=== PATIENT | male | born 1980 | race African-American/Black ===

== ENCOUNTER 2017-05-21 09:24 | Emergency (ER) | payer MEDICARE, MEDICAID ==
[~2017-05-21] VITALS: Ht 190.5 cm; Wt 59.0 kg
[2017-05-21 09:52] VITALS: BP 118/78
== END 2017-05-21 15:59 | disposition left against medical advice (07) ==
LOC: ER 09:52
DX: M79.671 Pain in right foot (principal); M79.89 Other specified soft tissue disorders; Z53.21 Procedure and treatment not carried out due to patient leaving prior to being seen by health care provider

== ENCOUNTER 2023-12-23 06:48 | Inpatient (IN) | payer MEDICARE, MEDICAID ==
[~2023-12-23] VITALS: Ht 182.9 cm; Wt 60.9 kg
[2023-12-23] MEDS ORDERED: ACETAMINOPHEN 325MG TABLET PO PRN (09:00)
[2023-12-23] MEDS ORDERED: ONDANSETRON HCL 4MG/2ML INJ IV PRN (11:45)
[2023-12-23] MEDS ORDERED: MORPHINE SULFATE 2 MG/ML INJ (NOT FOR IM USE) IV PRN (11:45)
[2023-12-23] MEDS ORDERED: CLONIDINE 0.1MG TABLET PO PRN (11:45)
[2023-12-23] MEDS ORDERED: LORAZEPAM 2MG/ML INJ IV PRN (11:45)
[2023-12-23] MEDS: HALOPERIDOL LACTATE 5MG/ML VIAL IM ONE (11:47)
[2023-12-23] MEDS: LORAZEPAM 2MG/ML INJ IM ONE (11:47)
[2023-12-23] MEDS ORDERED: NALOXONE HCL 0.4MG/ML VIAL IV PRN (12:30)
[2023-12-23] MEDS ORDERED: CEFTRIAXONE 1GM/50ML 50 ML IV NR (12:30)
[2023-12-23 15:38] LABS: BASOPHILS % 0.2 % (0.0-2.0); EOSINOPHILS % 0.2 % (0.0-5.0); HEMATOCRIT. 34.5 % (42.0-52.0); HEMOGLOBIN. 11.4 g/dL (14.0-18.0); LYMPHOCYTES % 9.1 % (20.0-50.0); MEAN CORPUSCULAR HEMOGLOBIN 29.2 pg (28.0-32.0); MEAN CORPUSCULAR HGB CONC 32.9 g/dL (31.0-37.0); MEAN CORPUSCULAR VOLUME 88.8 fL (80.0-94.0); MEAN PLATELET VOLUME 8.9 fl (7.4-10.4); MONOCYTES % 11.2 % (2.0-8.0); NEUTROPHILS % 79.3 % (40.0-76.0); PLATELET 187 x1000/uL (130-400); RED BLOOD CELL COUNT 3.89 mill/uL (4.7-6.1); RED CELL DISTRIBUTION WIDTH 16.1 % (11.6-14.6); WHITE BLOOD COUNT 8.7 x1000/uL (4.5-11.0)
[2023-12-23 15:45] LABS: CHLORIDE 105 mEq/L (98-107); POTASSIUM 3.7 mEq/L (3.5-5.1); SODIUM 138 mEq/L (136-145)
[2023-12-23 15:46] LABS: CARBON DIOXIDE 27 mEq/L (21-32)
[2023-12-23 15:47] LABS: CALCIUM 9.7 mg/dL (8.7-10.4)
[2023-12-23 15:51] LABS: CREATININE 0.6 mg/dL (0.6-1.3); GLUCOSE 91 mg/dL (70-105); UREA NITROGEN BLOOD 10 mg/dL (9-23)
[2023-12-23 15:59] LABS: TROPONIN I HIGH SENSITIVITY < 4 ng/L (3.0-53)
[2023-12-23] MEDS: DEXT 5%/0.45% NACL 1000ML 1,000 ML IV SCH (20:38)
[2023-12-23 22:45] LABS: TROPONIN I HIGH SENSITIVITY < 4 ng/L (3.0-53)
[2023-12-24 00:41] VITALS: BP 102/68; PULSE 80; RESP 18; TEMP 96.6
[2023-12-24 04:00] VITALS: BP 106/75; PULSE 96; RESP 20; TEMP 97.9
[2023-12-24] MEDS: CEFTRIAXONE 1GM/50ML 50 ML IV NR (06:27)
[2023-12-24 06:55] LABS: CHLORIDE 105 mEq/L (98-107); POTASSIUM 4.1 mEq/L (3.5-5.1); SODIUM 137 mEq/L (136-145)
[2023-12-24 06:56] LABS: CALCIUM 8.6 mg/dL (8.7-10.4); CARBON DIOXIDE 18 mEq/L (21-32)
[2023-12-24 07:01] LABS: CREATININE 0.5 mg/dL (0.6-1.3); GLUCOSE 62 mg/dL (70-105)
[2023-12-24 07:04] LABS: T4 FREE 1.52 ng/dL (0.89-1.76); THYROID STIMULATING HORMONE 1.46 uIU/mL (0.55-4.78)
[2023-12-24 07:14] LABS: UREA NITROGEN BLOOD < 5 mg/dL (9-23)
[2023-12-24 08:00] VITALS: BP 150/93; PULSE 92; RESP 20; TEMP 97.9
[2023-12-24] MEDS ORDERED: PROPOFOL 200MG/20ML VIAL IV ONE (12:06)
[2023-12-24] MEDS ORDERED: SUCCINYLCHOLINE CHLORIDE 200MG/10ML IV ONE (12:06)
[2023-12-24] MEDS ORDERED: LIDOCAINE HCL 1% 10 MG/ML 10ML VIAL ONE (12:06)
[2023-12-24] MEDS ORDERED: FENTANYL CITRATE/PF 50MCG/ML 2ML VIAL ONE (12:24)
[2023-12-24] MEDS ORDERED: DEXAMETHASONE 4MG/ML 1ML VIAL ONE (12:24)
[2023-12-24] MEDS ORDERED: CEFAZOLIN SODIUM 1000MG/VIAL ONE (12:24)
[2023-12-24] MEDS ORDERED: BUPIVACAINE HCL/PF 0.5% (5MG/ML) 10ML ONE (12:45)
[2023-12-24] MEDS ORDERED: LIDOCAINE HCL/EPINEPHRINE 1%-EPI 1:100,000 20 ML VIAL ONE (12:45)
[2023-12-24] MEDS ORDERED: MEPERIDINE HCL/PF 25MG/ML CPJ IV PRN (13:15)
[2023-12-24 16:00] VITALS: BP 108/86; PULSE 97; RESP 18; TEMP 97.9
[2023-12-24 17:15] LABS: BASOPHILS % 0.2 % (0.0-2.0); EOSINOPHILS % 0.1 % (0.0-5.0); HEMATOCRIT. 34.5 % (42.0-52.0); HEMOGLOBIN. 11.3 g/dL (14.0-18.0); LYMPHOCYTES % 7.5 % (20.0-50.0); MEAN CORPUSCULAR HEMOGLOBIN 29.3 pg (28.0-32.0); MEAN CORPUSCULAR HGB CONC 32.9 g/dL (31.0-37.0); MEAN CORPUSCULAR VOLUME 89.3 fL (80.0-94.0); MEAN PLATELET VOLUME 8.9 fl (7.4-10.4); MONOCYTES % 9.2 % (2.0-8.0); PLATELET 194 x1000/uL (130-400); RED BLOOD CELL COUNT 3.87 mill/uL (4.7-6.1); RED CELL DISTRIBUTION WIDTH 15.6 % (11.6-14.6); WHITE BLOOD COUNT 9.6 x1000/uL (4.5-11.0)
[2023-12-24 20:00] VITALS: BP 120/83; PULSE 98; RESP 20; TEMP 100.7
[2023-12-25] VITALS: BP 114/82; PULSE 102; RESP 18; TEMP 100.2
[2023-12-25 04:00] VITALS: BP 120/74; PULSE 100; RESP 18; TEMP 99.6
[2023-12-25 08:00] VITALS: BP 120/60; PULSE 99; RESP 18; TEMP 99.7
[2023-12-25 08:47] LABS: CARBON DIOXIDE 27 mEq/L (21-32); CHLORIDE 104 mEq/L (98-107); POTASSIUM 3.7 mEq/L (3.5-5.1); SODIUM 139 mEq/L (136-145)
[2023-12-25 08:49] LABS: CALCIUM 9.5 mg/dL (8.7-10.4)
[2023-12-25 08:53] LABS: CREATININE 0.7 mg/dL (0.6-1.3); GLUCOSE 86 mg/dL (70-105); UREA NITROGEN BLOOD 6 mg/dL (9-23)
[2023-12-25 09:21] LABS: BASOPHILS % 0.4 % (0.0-2.0); EOSINOPHILS % 0.8 % (0.0-5.0); HEMATOCRIT. 36.8 % (42.0-52.0); HEMOGLOBIN. 11.8 g/dL (14.0-18.0); LYMPHOCYTES % 9.8 % (20.0-50.0); MEAN CORPUSCULAR HEMOGLOBIN 28.9 pg (28.0-32.0); MEAN CORPUSCULAR HGB CONC 32.1 g/dL (31.0-37.0); MEAN PLATELET VOLUME 9.9 fl (7.4-10.4); MONOCYTES % 12.5 % (2.0-8.0); NEUTROPHILS % 76.5 % (40.0-76.0); PLATELET 206 x1000/uL (130-400); RED BLOOD CELL COUNT 4.09 mill/uL (4.7-6.1); RED CELL DISTRIBUTION WIDTH 16.2 % (11.6-14.6); WHITE BLOOD COUNT 6.8 x1000/uL (4.5-11.0)
[2023-12-25 12:30] VITALS: BP 121/81; PULSE 97; RESP 18; TEMP 101.2
[2023-12-25] MEDS: ACETAMINOPHEN 650MG/20.3ML UDC PO PRN (13:36)
[2023-12-25] MEDS: CEFTRIAXONE 1GM/50ML 50 ML IV SCH (15:53)
[2023-12-25 16:00] VITALS: BP 116/74; PULSE 97; RESP 20; TEMP 99.9
[2023-12-25 20:00] VITALS: BP 125/86; PULSE 89; RESP 20; TEMP 96.8
[2023-12-26] VITALS: BP 118/77; PULSE 87; RESP 21; TEMP 96.2
[2023-12-26 04:00] VITALS: BP 108/80; PULSE 88; RESP 21; TEMP 97.2
[2023-12-26 08:00] VITALS: BP 127/87; PULSE 98; RESP 18; TEMP 97.9
[2023-12-26 12:00] VITALS: BP 113/74; PULSE 75; RESP 2; TEMP 96.9
[2023-12-26 13:36] LABS: CHLORIDE 106 mEq/L (98-107); POTASSIUM 4.4 mEq/L (3.5-5.1); SODIUM 140 mEq/L (136-145)
[2023-12-26 13:37] LABS: CALCIUM 10.2 mg/dL (8.7-10.4); CARBON DIOXIDE 28 mEq/L (21-32)
[2023-12-26 13:39] LABS: HEMATOCRIT. 37.7 % (42.0-52.0); HEMOGLOBIN. 11.9 g/dL (14.0-18.0); MEAN CORPUSCULAR HEMOGLOBIN 28.3 pg (28.0-32.0); MEAN CORPUSCULAR HGB CONC 31.5 g/dL (31.0-37.0); MEAN CORPUSCULAR VOLUME 89.7 fL (80.0-94.0); MEAN PLATELET VOLUME 9.4 fl (7.4-10.4); PLATELET 226 x1000/uL (130-400); RED CELL DISTRIBUTION WIDTH 15.9 % (11.6-14.6); WHITE BLOOD COUNT 6.5 x1000/uL (4.5-11.0)
[2023-12-26 13:42] LABS: CREATININE 0.7 mg/dL (0.6-1.3); GLUCOSE 89 mg/dL (70-105); UREA NITROGEN BLOOD 7 mg/dL (9-23)
[2023-12-26 13:48] LABS: DIFFERENTIAL COMMENT 1
[2023-12-26 16:00] VITALS: BP 120/74; PULSE 85; RESP 18; TEMP 98.1
[2023-12-26 16:53] LABS: PLATELET ESTIMATE NORMAL
[2023-12-26 20:00] VITALS: BP 112/77; PULSE 95; RESP 18; TEMP 97.7
[2023-12-27] VITALS: BP 124/82; PULSE 104; RESP 18; TEMP 97.4
[2023-12-27 04:00] VITALS: BP 117/84; PULSE 100; RESP 17; TEMP 97.2
[2023-12-27 08:00] VITALS: BP 124/84; PULSE 114; RESP 19; TEMP 98.8
[2023-12-27 10:37] LABS: CARBON DIOXIDE 25 mEq/L (21-32); CHLORIDE 105 mEq/L (98-107); POTASSIUM 4.1 mEq/L (3.5-5.1); SODIUM 137 mEq/L (136-145)
[2023-12-27 10:38] LABS: CALCIUM 9.9 mg/dL (8.7-10.4)
[2023-12-27 10:43] LABS: CREATININE 0.8 mg/dL (0.6-1.3); GLUCOSE 91 mg/dL (70-105); UREA NITROGEN BLOOD 9 mg/dL (9-23)
[2023-12-27 10:48] LABS: BASOPHILS % 0.6 % (0.0-2.0); EOSINOPHILS % 0.4 % (0.0-5.0); HEMATOCRIT. 39.3 % (42.0-52.0); HEMOGLOBIN. 13.1 g/dL (14.0-18.0); LYMPHOCYTES % 7.5 % (20.0-50.0); MEAN CORPUSCULAR HEMOGLOBIN 29.8 pg (28.0-32.0); MEAN CORPUSCULAR HGB CONC 33.4 g/dL (31.0-37.0); MEAN CORPUSCULAR VOLUME 89.1 fL (80.0-94.0); MEAN PLATELET VOLUME 9.5 fl (7.4-10.4); MONOCYTES % 6.3 % (2.0-8.0); NEUTROPHILS % 85.2 % (40.0-76.0); PLATELET 267 x1000/uL (130-400); RED BLOOD CELL COUNT 4.41 mill/uL (4.7-6.1); RED CELL DISTRIBUTION WIDTH 15.9 % (11.6-14.6); WHITE BLOOD COUNT 6.9 x1000/uL (4.5-11.0)
[2023-12-27 12:00] VITALS: BP 108/86; PULSE 107; RESP 17; TEMP 97.9
[2023-12-27 15:40] VITALS: BP 108/86; PULSE 98; TEMP 97.9; O2SAT 99
== END 2023-12-27 18:31 | disposition home health service (06) | DRG 711 ==
LOC: ER 06:48 → EDBEDREQ 11:39 → EDBEDREQTM 11:39 → EDBEDREQSVC 13:07 → 5WST 21:43 → 8WST 23:41
PROVIDERS: ADMIT Internal Medicine Nephrology; ATTEND Internal Medicine Nephrology
PROC: 0VB90ZZ Excision of Right Testis, Open Approach (ICD-10-PCS; principal; 2023-12-24)
DX: N44.00 Torsion of testis, unspecified (principal); F84.0 Autistic disorder; R64 Cachexia; Z68.1 Body mass index [BMI] 19.9 or less, adult; N43.3 Hydrocele, unspecified; R62.7 Adult failure to thrive
CPT/HCPCS: 36415; 71045; 76870; 80048; 84439; 84443; 84481; 84484; 85025; 88304; 93005; 93306; 93970; 93976; 99285; J0330; J0690; J0696; J1100; J1630; J2060; J2704; J3010; J3490